=== PATIENT | female | born 1990 | race Caucasian/White ===

== ENCOUNTER 2019-09-06 12:00 | Emergency (ER) | payer OTHER, SELFPAY ==
[2019-09-06 12:06] VITALS: BP 137/77; PULSE 96; RESP 20; TEMP 37.1; O2SAT 99
--- NOTE | 2019-09-06 12:25 | ED.FEMALEGU ---
HPI - Female Genitourinary General Chief complaint: Urogenital-Female Stated complaint: tooth pain Time Seen by Provider: 09/06/19 12:11 Source: patient and RN notes reviewed Mode of arrival: ambulatory Limitations: no limitations History of Present Illness HPI Narrative: Patient presents today complaining of left lower dental pain and lower jaw swelling x1 week. This tooth has been broken off at the gumline for approximately 1 year. She has seen a dentist a few times, but now needs to see an oral surgeon. Currently rates her pain 8/10 and has been taking 400 mg of ibuprofen. Denies fever, nausea, vomiting, difficulty swallowing, shortness of breath. She also reports dysuria and suprapubic pressure x1 week. Denies hematuria. No recent antibiotic use. MD elicited complaint: other (Tooth pain, UTI) Related Data Allergies Allergy/AdvReac Type Severity Reaction Status Date / Time No Known Allergies Allergy Verified 09/06/19 12:16 Review of Systems Review of Systems: Narrative: CONSTITUTIONAL: Denies body aches, fever, chills, or sweats. EYES: Denies visual changes, redness, or discharge. ENT: Denies rhinorrhea, congestion, sore throat, or otalgia.+ Left lower dental pain and jaw swelling CARDIOVASCULAR: Denies chest pain, palpitations, or edema. RESPIRATORY: Denies cough or dyspnea. GASTROINTESTINAL: Denies abdominal pain, nausea, vomiting, or diarrhea. GENITOURINARY: + Dysuria, suprapubic pain. Denies flank pain or hematuria SKIN: Denies rash, itching, or wounds. MUSCULOSKELETAL: Denies back pain, joint pain, or myalgia. NEUROLOGIC: Denies headache, numbness, tingling, or weakness. PSYCH: Denies depression or anxiety. PMFSH Comments At time of signature, I have reviewed and agree with nursing past medical, surgical, social and family history unless otherwise noted. Please see nursing chart for further information. There is no relevant family history pertinent to the presenting complaint Exam Narrative: Exam Narrative: GENERAL: Well-appearing, well-nourished, and in no acute distress. HEAD: Normocephalic, atraumatic. EYES: EOMI. No redness or drainage. Conjunctivae normal. ENT: Mucous membranes pink and moist. Tooth 19 is brown in color and broken off at the gumline. Mild swelling to the left lower jaw. Uvula midline. NECK: Normal AROM. Supple. No lymphadenopathy. CHEST: No respiratory distress. Clear to auscultation. HEART: Regular rate and rhythm. No murmur appreciated. Normal peripheral pulses. ABDOMEN: Soft, nontender, nondistended, normal active bowel sounds.-CVAT MUSCULOSKELETAL: No bony tenderness. EXTREMITIES: Normal range of motion. No edema. SKIN: Warm, dry, no rash. Capillary refill normal. Normal skin turgor. NEURO: No focal deficits. Alert and oriented x3. Gait steady. PSYCH: Normal affect. No signs of depression or anxiety. Course Vital Signs Vital signs: Vital Signs Temperature 98.7 F 09/06/19 12:06 Pulse Rate 96 09/06/19 12:06 Respiratory Rate 20 09/06/19 12:06 Blood Pressure 137/77 09/06/19 12:06 Pulse Oximetry 99 09/06/19 12:06 Temperature 98.7 F 09/06/19 12:06 Pulse Rate 96 09/06/19 12:06 Respiratory Rate 20 09/06/19 12:06 Blood Pressure 137/77 09/06/19 12:06 Pulse Oximetry 99 09/06/19 12:06 Reviewed. Pt has been instructed to follow up with her PCP regarding her elevated blood pressure today. MDM - Female Genitourinary Differential Diagnosis Differential diagnosis: Likely urinary tract infection, vaginitis, cystitis and other (Dental abscess, dental caries, dental fracture) Lab Data Attestation: I reviewed the patient's lab results. Labs: Urine Glucose Negative Reference Range: Negative Urine Bilirubin Negative Reference Range: Negative Urine Ketone Negative Reference Range: Negative Urine Specific [place] 1.030 Reference Range:1.001-1.035
== END 2019-09-06 12:35 | disposition home or self-care (01) ==
PROVIDERS: Emergency Provider Nurse Practitioner
DX: K04.7 Periapical abscess without sinus (principal); N30.00 Acute cystitis without hematuria
CPT/HCPCS: 81003; 87077; 87086; 87088; 87186; 99213; G0463

== ENCOUNTER 2023-01-31 10:39 | Outpatient (CLI) | payer OTHER, SELFPAY ==
[2023-01-31 12:16] LABS: Hematocrit 40.5 % (37.0-47.0); Hemoglobin 13.2 g/dL (12.0-15.0); Mean Corpuscular HGB Conc 32.6 g/dl (32-36); Mean Corpuscular Hemoglobin 29.8 pg (26-34); Mean Corpuscular Volume 91.4 fl (80-100); Mean Platelet Volume 10.1 fl (7.4-10.4); Platelet Count Result 256 k/mm3 (150-375); Red Blood Count 4.43 M/mm3 (4.2-5.4); Red Cell Distribution Width 12.8 % (11.5-14.5); White Blood Count 10.4 K/mm3 (4.5-10.0)
[2023-01-31 12:26] LABS: Alanine Aminotransferase 22 U/L (6-35); Albumin Level 4.4 g/dL (3.5-5.1); Alkaline Phosphatase 44 U/L (38-126); Anion Gap 5 mmol/L (8-16); Aspartate Amino Transferase 31 U/L (14-36); Bilirubin,Total 0.7 mg/dL (0.2-1.3); Blood Urea Nitrogen 8 mg/dL (7-17); Calcium 8.9 mg/dL (8.4-10.2); Carbon Dioxide 31 mmol/L (22-30); Chloride 102 mmol/L (98-107); Cholesterol 179 mg/dL (0-200); Estimated Glomerular Filt Rate > 60; Glucose 81 mg/dL (65-110); HDL Direct 37 mg/dL; Potassium 3.7 mmol/L (3.4-5.0); Sodium 138 mmol/L (137-145); Triglycerides 137 mg/dL (<150)
[2023-01-31 12:36] LABS: Appearance Urine Clear (Clear); Bacteria Urine None Seen /hpf; Bilirubin Urine Negative (Negative); Blood Urine Negative (Negative); Color Urine Yellow (Yellow); Glucose Urine UA Negative (Negative); Ketones Urine Negative (Negative); Leukocyte Esterase Ur Trace LEU/UL (NEGATIVE); Nitrate Urine Negative (Negative); Non Pathogenic Casts 0-2; Protein Urine Negative (Negative); Specific Grav Ur 1.014 (1.001-1.035); Squamous Epithelial Cell Urine Occasional /hpf (Few); WBC Urine 0-5 /hpf (0-3)
[2023-01-31 12:38] LABS: LDL Cholesterol Direct 111 mg/dL
[2023-01-31 12:40] LABS: Add Urine Microscopic? YES
[2023-01-31 12:43] LABS: Beta HCG Quantitative < 2.39 mIU/ML
[2023-01-31 13:00] LABS: Hepatitis B Surface Antigen Negative (Negative)
[2023-01-31 13:06] LABS: HAV RESULT Negative (Negative); Hepatitis B Core IgM Result Negative (Negative)
[2023-01-31 13:20] LABS: Hepatitis C Virus Antibody Reactive (Negative)
[2023-01-31 13:33] LABS: Budding Yeast Urine Present /hpf; Need Manual Microscopic Need Manual
[2023-01-31 13:48] LABS: Rapid Plasma Reagin Non-Reactive (NonReactive)
[2023-01-31 14:47] LABS: Calcium Oxalate Crystals Urine Present /hpf; RBC Urine 0-2 /hpf (0-2)
[2023-02-02 11:53] LABS: Amphetamines NEGATIVE ng/mL (<500); Barbiturates NEGATIVE ng/mL (<300); Benzodiazepines POSITIVE ng/mL (<100); Cocaine Metabolite NEGATIVE ng/mL (<150); Marijuana Metabolite NEGATIVE ng/mL (<20); Methadone Metabolite POSITIVE ng/mL (<100); Opiates NEGATIVE ng/mL (<100); Oxidant NEGATIVE mcg/mL (<200); pH 6.3 (4.5-9.0)
[2023-02-04 13:26] LABS: Hepatitis C RNA, Quant PCR 2860000 IU/mL
== END 2023-01-31 10:40 | disposition home or self-care (01) ==
DX: F11.20 Opioid dependence, uncomplicated (principal)
CPT/HCPCS: 36415; 80053; 80061; 80074; 80307; 80354; 81001; 84443; 84702; 85027; 86592; 87522; 99202; G0463; G0480